=== PATIENT | male | born 1980 | race African-American/Black ===

== ENCOUNTER 2020-09-21 10:13 | Emergency (ER) | payer SELFPAY ==
[2020-09-21] MEDS ORDERED: Fluorescein Opthalmic Strip ONE (10:36)
[2020-09-21] MEDS ORDERED: Tetracaine 0.5% PF 4 ML BOT ONE (10:36)
== END 2020-09-21 11:33 | disposition home or self-care (01) ==
LOC: CSHERS 10:13
DX: T15.02XA Foreign body in cornea, left eye, initial encounter (principal)
CPT/HCPCS: 65222